=== PATIENT | female | born 1960 | race Caucasian/White ===

== ENCOUNTER 2022-05-31 07:03 | Observation (INO) ==
[2022-05-31] MEDS ORDERED: TORADOL IVP ONE (09:55)
[2022-05-31 11:35] LABS: SARS COV-2 RNA RAPID NAAT NEGATIVE (NEGATIVE)
[2022-05-31] MEDS ORDERED: NITROSTAT SL PRN (11:38)
[2022-05-31] MEDS ORDERED: ATIVAN PO PRN (11:38)
[2022-05-31 12:36] VITALS: BMI 29.5
[2022-05-31] MEDS: SODIUM CHLORIDE 1,000 ML IV SCH (13:02)
[2022-05-31] MEDS ORDERED: HUMULIN R SUBCUT PRN (13:05)
[2022-05-31] MEDS ORDERED: TYLENOL PO PRN (13:05)
--- NOTE | 2022-05-31 14:06 | DI ---
EXAM: RADIOGRAPHS, RIGHT HIP AND PELVIS HISTORY: Right hip injury, fall. COMPARISON: None. TECHNIQUE: Three views. FINDINGS: Bone mineralization normal. No fracture or dislocation. Mild osteoarthritis of the hips. No erosions. Lower lumbar degenerative changes noted. Atherosclerotic calcifications present. IMPRESSION: No fracture or dislocation.
--- NOTE | 2022-05-31 14:06 | CT ---
EXAM: CT LUMBAR SPINE WITHOUT CONTRAST. HISTORY: Back pain following a fall. COMPARISON: None. TECHNIQUE: Multiple axial images of the lumbar spine were obtained without intravenous contrast. Im ages were reformatted in the sagittal and coronal planes. FINDINGS: The normal curvature and alignment are maintained. Vertebral body eights are normal. No fracture or subluxation is seen. Moderate to severe loss of disc height L2-3, severe loss of disc he ight L3-4 along the left and L4-5 along the right with moderate loss of disc height L5-S1. Disc osteophyte formation, facet arthropathy thickening of ligamentum flavum with moderate central ca nal stenosis L2-3 and L3-4 and mild central canal stenosis L4-5. There is mild right and moderate le ft neural foraminal narrowing at L2-3, mild to moderate right and severe left neural foraminal narrow ing at L3-4, moderate right and mild left neural foraminal narrowing at L4-5 and moderate neural fora jess narrowing bilaterally L5-S1. Adjacent soft tissues are unremarkable. Atherosclerotic calcifications present. No aneurysm. Colonic diverticulosis. Urinary bladder diste nded although incompletely imaged. IMPRESSION: No acute abnormality of the lumbar spine. All CT scans are performed using dose optimization techniques as appropriate to the performed exam an d include at least one of the following: Automated exposure control, adjustment of the mA and/or kV according t o size, and the use of iterative reconstruction technique.
--- NOTE | 2022-05-31 14:06 | CT ---
EXAMINATION: CT THORACIC SPINE WITHOUT CONTRAST HISTORY: Fall, pain TECHNIQUE: CT of the thoracic spine was performed according to standard protocol without intravenous contrast. Sagittal and coronal reformatted images were obtained using the data from the axial images . Contrast Dose: None. CT Dose Reduction Techniques Performed: Yes. COMPARISON: None. FINDINGS: Segmentation: 12 rib-bearing thoracic vertebral bodies. Alignment: Anatomic. Bones: No fracture. No lytic or blastic lesion. Disc Spaces: Normal heights. Soft Tissues: There are calcified mediastinal lymph nodes. Atherosclerotic aorta. Limited chest and abdomen: The visualized portions of the lungs are clear. The thoracic aorta is not dilated. The visualized portions of the adrenals and kidneys are normal. Degenerative changes: Minimal scattered degenerative disc disease, mostly in the lower thoracic spine . IMPRESSION: 1. No fracture or subluxation. Minimal degenerative disc disease All CT scans are performed using dose optimization techniques as appropriate to the performed exam an d include at least one of the following: Automated exposure control, adjustment of the mA and/or kV according t o size, and the use of iterative reconstruction technique.
--- NOTE | 2022-05-31 14:06 | CT ---
EXAM: CT CERVICAL SPINE WITHOUT CONTRAST. HISTORY: Neck injury, fall. COMPARISON: None. TECHNIQUE: Multiple axial images of the cervical spine were obtained without intravenous contrast. Images were reformatted in the sagittal and coronal planes. FINDINGS: There is normal curvature and alignment. Vertebral body heights are maintained. Mild los s of disc height at multiple levels. No fracture or subluxation is seen. Disc osteophyte formation causes mild central canal stenosis C4-5 and along with uncovertebral hypertrophy facet arthropathy ca uses severe right and moderate left neural foraminal narrowing at C4-5, moderate right neural foramin al narrowing C5-6, and mild neural foraminal narrowing at C6-7. The prevertebral soft tissues are unremarkable. Atherosclerotic calcifications present. Probable scarring right upper lobe. Heterogeneous thyroid g land with bilateral nodules. Follow-up ultrasound recommended. IMPRESSION: No acute abnormality of the cervical spine. All CT scans are performed using dose optimization techniques as appropriate to the performed exam an d include at least one of the following: Automated exposure control, adjustment of the mA and/or kV according t o size, and the use of iterative reconstruction technique.
[2022-05-31] MEDS: LOVENOX SUBCUT SCH (14:19)
[2022-05-31] MEDS: ATARAX PO SCH (15:39)
[2022-05-31] MEDS: COZAAR PO SCH (15:39)
[2022-05-31] MEDS: PLAVIX PO SCH (15:39)
[2022-05-31] MEDS: LIPITOR PO SCH (15:39)
[2022-05-31] MEDS: WELLBUTRIN XL PO SCH (15:39)
[2022-05-31] MEDS: ZESTRIL PO SCH (15:39)
[2022-05-31] MEDS: MORPHINE 2 MG/ML SYRINGE IVP PRN (18:22)
[2022-05-31] MEDS: LOPRESSOR PO SCH (20:42)
[2022-05-31] MEDS ORDERED: BUPROPION HCL 150 MG PO SCH (21:00)
[2022-06-01] MEDS: SODIUM CHLORIDE 1,000 ML IV SCH (00:09)
[2022-06-01] MEDS: MORPHINE 2 MG/ML SYRINGE IVP PRN (01:33)
[2022-06-01 03:36] LABS: BILIRUBIN,URINE Negative (NEGATIVE); CLARITY,URINE Clear (CLEAR); COLOR,URINE Yellow (YELLOW); GLUCOSE, URINE (UA) Trace (NEGATIVE); KETONES,URINE Negative (NEGATIVE); LEUKOCYTE ESTERASE ,URINE 2+ (NEGATIVE); NITRITE,URINE Negative (NEGATIVE); PROTEIN,URINE Negative (NEGATIVE); URINE, BLOOD Negative (NEGATIVE); UROBILINOGEN,URINE 0.2 (0.2)
[2022-06-01 03:37] LABS: URINE WBC, MICROSCOPIC 20-30 (0-2)
[2022-06-01 05:13] VITALS: BP 109/54; TEMP 97.1
[2022-06-01 05:18] LABS: BASOPHILS # (AUTO) 0.1 K/uL (0-0.2); BASOPHILS % (AUTO) 0.8 % (0.0-3.0); EOSINOPHILS # (AUTO) 0.2 K/ul (0.0-0.7); EOSINOPHILS % (AUTO) 2.1 % (0.0-7.0); HEMATOCRIT 40.2 % (37.0-47.0); HEMOGLOBIN 12.5 g/dl (12.0-16.0); IMMATURE GRANULOCYTE % (AUTO) 0.2 % (0.0-5.0); LYMPHOCYTES # (AUTO) 2.1 K/uL (0.60-3.4); LYMPHOCYTES % (AUTO) 24.6 (10.0-50.0); MEAN CORPUSCULAR HEMOGLOBIN 26.5 pg (27.0-31.0); MEAN CORPUSCULAR HGB CONC 31.1 (31.8-35.4); MEAN CORPUSCULAR VOLUME 85.4 fl (81.0-99.0); MONOCYTES # (AUTO) 0.7 K/uL (0.4-2.0); MONOCYTES % (AUTO) 8.3 (0-10); NEUTROPHILS # (AUTO) 5.6 K/ul (2.0-6.9); PLATELET COUNT 214 10^3/uL (140-440); RDW COEFFICIENT OF VARIATION 16.3 % (11.6-14.8); RED BLOOD COUNT 4.71 10^6/ul (4.20-5.40)
[2022-06-01 05:33] LABS: ALANINE AMINOTRANSFERASE 18.8 U/L (0-35); ALBUMIN 3.61 g/dL (3.5-5.0); ASPARTATE AMINO TRANSFERASE 23.3 U/L (14-36); BILIRUBIN,TOTAL 0.52 mg/dL (0.2-1.3); BLOOD UREA NITROGEN 8.3 mg/dL (7-17); CALCIUM 8.4 mg/dL (8.4-10.2); CARBON DIOXIDE 25.5 mmol/L (22-30.0); CHLORIDE 109.4 mmol/L (98-107); CREATININE 0.62 mg/dL (0.60-1.30); GLUCOSE 150.1 mg/dL (74-106); POTASSIUM 3.4 mmol/L (3.5-5.1); SODIUM 140.2 mmol/L (134.5-145); TOTAL PROTEIN 6.72 g/dL (6.3-8.2)
[2022-06-01] MEDS ORDERED: NORCO 7.5-325 PO ONE (08:06)
--- NOTE | 2022-06-01 08:44 | PCM.PROG ---
Date Seen by Provider: 06/01/22 Time Seen by Provider: 08:25 Subjective: Hip pain less today. Objective: Vitals: T=97.1 F, P=79, R=16, BM=033/54, SPO2=98 Appears to be comfortable. HEENT: [] Neck: [] Lungs: [] CVS: [] Abdomen: [] Extremities: [] Right hip nontender. Patient able to bear weight and ambulate. Neurological: [] Skin: [] Lab/Tests/Diagnostic Imaging: [] (1) Acute hip pain: Status: Acute Code(s): M25.559 - Pain in unspecified hip SNOMED Code(s): 01210056 Plan: Radiographic studies negative. Patient improved a bit. Discharge.
--- NOTE | 2022-06-01 08:48 | PCM.DC ---
Final Diagnosis: right hip pain Physical Exam Appearance: Well-appearing, No pain distress and Well-nourished Ill-appearing: None Pain Distress: None Eyes: Not Examined ENT: Nose normal and Oropharynx normal Neck: Supple Respiratory: Airway patent, Breath sounds clear and Breath sounds equal Cardiovascular: RRR, No rub and No murmur GI/: Soft, Nontender, No masses and Bowel sounds normal Musculoskeletal: Normal strength, No edema and No calf tenderness Skin: Warm and Dry Neurological: Alert and Oriented Psychiatric: Affect appropriate and Mood appropriate (1) Acute hip pain: Status: Acute Code(s): M25.559 - Pain in unspecified hip SNOMED Code(s): 45485496 Reason for Hospitalization: right hip pain Prognosis/Condition at Discharge: condition at discharge was stable Medications at Discharge: patient discharged with toradol and prior admission medications Education Provided to Patient and Family: hip pain Follow-ups: Follow up with your primary care provider in 1-2 days Discharge Disposition: Home Hospital Course: Patient admitted for right hip pain control related to fall. All radiographs were negative. Pain improved and patient discharged to home. Plan: Follow up with your primary care provider in 1-2 days.
[2022-06-01] MEDS: LIPITOR PO SCH (08:53)
[2022-06-01] MEDS: ATARAX PO SCH (08:53)
[2022-06-01] MEDS: COZAAR PO SCH (08:53)
[2022-06-01] MEDS: PLAVIX PO SCH (08:53)
[2022-06-01] MEDS: LOPRESSOR PO SCH (08:53)
[2022-06-01] MEDS: WELLBUTRIN XL PO SCH (08:54)
[2022-06-01] MEDS: ZESTRIL PO SCH (08:54)
[2022-06-01] MEDS: LOVENOX SUBCUT SCH (08:56)
== END 2022-06-01 10:48 | disposition home or self-care (01) ==
LOC: MEDSURG A 07:03 → ED 07:03 → MEDSURG A 12:17
PROVIDERS: ADMIT Emergency Medicine Emergency Medical Services; ATTEND Surgery
DX: Y99.9 Unspecified external cause status; Z79.84 Long term (current) use of oral hypoglycemic drugs; Y93.9 Activity, unspecified; Z79.899 Other long term (current) drug therapy; E11.9 Type 2 diabetes mellitus without complications; Z79.4 Long term (current) use of insulin; S70.01XA Contusion of right hip, initial encounter; W01.0XXA Fall on same level from slipping, tripping and stumbling without subsequent striking against object, initial encounter; R26.2 Difficulty in walking, not elsewhere classified; I10 Essential (primary) hypertension; Y92.9 Unspecified place or not applicable; M25.551 Pain in right hip; S39.012A Strain of muscle, fascia and tendon of lower back, initial encounter; Z51.81 Encounter for therapeutic drug level monitoring; Z20.822 Contact with and (suspected) exposure to COVID-19

== ENCOUNTER 2024-11-26 07:14 | Observation (INO) ==
--- NOTE | 2024-11-26 07:20 | ED.PDOC ---
General [facility] ED Provider: Dr. MAI TERRY MD Chief Complaint: Nausea/Vomiting Stated Complaint: Patient is a 64-year-old female that reported to the emergency department for nausea and chills and fatigue for the past few days. Patient stated that she has not been around any other sick contacts. Patient stated that she was seen in August and diagnosed with pneumonia. She stated that she was given an inhaler that has made her jittery. She stated that she saw her primary care doctor and they started her on Symbicort for COPD. She stated that she started feeling better however for the past few days she has continued to get worse and had the shakes/chills, fatigue, and nausea. Patient stated that she has not had any fever, sore throat, shortness of breath, dizziness, syncope, or any other acute symptoms. Patient stated that she has not been outside the country recently. Patient stated that she does not drink from any impure water sources. Patient did state that she has a reproducible pain to touch in her epigastric/lower center chest. Patient stated that the pain does not radiate. Patient denied any diaphoresis. Patient did state that she has recently had a cardiac surgery she does not know whether it was stents were placed or if there was bypass grafts however she stated that she had the surgery at [facility] in [facility] and she thinks that her surgeon was a Dr. Konrad Martinez. In the emergency department patient's blood pressure is elevated at 212/108. Patient's heart rate is 88 bpm. Patient has O2 sat of 94% on room air. Patient's GCS is 15. Time Seen by Provider: 11/26/24 07:15 Mode of Arrival: Walk-In Information Source: Patient Exam Limitations: No limitations Primary Care Provider: RAMU DALY Nursing and Triage Documentation Reviewed and Agree: Yes Opioid Naive vs. Tolerant What is Opioid Naive?: *Opioid Naive implies the patient is not already taking opioids or not chronically receiving opioids on a daily basis. *PRN dosing is not "usually" associated with tolerance. *Patients are at higher risk of over-sedation and aspiration. What is Opioid Tolerant?: *Opioid Tolerance implies less than the expected response to an opioid. *Acquired tolerance is defined by the patient taking 60mg of oral morphine daily (or equianalgesic dose of another opioid) for 1 week or more. *Often associated with chronic pain. *May take more than usual dose to achieve desired pain control. Review of Systems Review Of Systems Constitutional: Reports Chills and Weakness Cardiac: Reports Chest pain GI: Reports Vomiting PFSH PFSH Medical History (Updated 11/26/24 @ 08:34 by AMI TERRY MD) Anxiety F41.9 - Anxiety disorder, unspecified (ICD-10) Obesity E66.9 - Obesity, unspecified (ICD-10) CAD (coronary artery disease) I25.10 - Atherosclerotic heart disease of [place] coronary artery without angina pectoris (ICD-10) Hypertension I10 - Essential (primary) hypertension (ICD-10) Diabetes mellitus E11.9 - Type 2 diabetes mellitus without complications (ICD-10) Hyperlipidemia E78.5 - Hyperlipidemia, unspecified (ICD-10) Other specified events, undetermined intent, initial encounter Right hand injury 2013 Y33.XXXA - Other specified events, undetermined intent, initial encounter (ICD-10) Family History (Updated 05/31/22 @ 12:39 by DIMITRIS COLLIER RN) Mother Cancer FATHER Cancer Social History (Updated 05/31/22 @ 12:40 by DIMITRIS COLLIER RN) Smoking and tobacco status: Current every day smoker Tobacco type: cigarettes Smoking packs per day: 1 Smoking cigarettes per day: 20.0 Years smoked: 45 Smoking pack-years: 45.00 Tobacco: How many years used: 40 Surgical History Hx of CABG Z95.1 - Presence of aortocoronary bypass graft (ICD-10) History of musculoskeletal system surgery Right hand Z98.890 - Other specified postprocedural states (ICD-10) Status post hysterectomy Z90.710 - Acquired absence of both cervix and uterus (ICD-10) Female Reproductive History Menstrual Hx Hysterectomy: Yes Hx Tubal Ligation: No Physical Exam Physical Exam Appearance: Reports Ill-appearing, No pain distress and Well-nourished Ill-appearing: Mild Pain Distress: None Eyes: Reports KYRA, EOMI and Conjunctiva clear ENT: Reports Nose normal and Oropharynx normal Neck: Supple Respiratory: Reports Airway patent, Breath sounds clear, Breath sounds equal and Respirations nonlabored Cardiovascular: Reports RRR, Pulses normal, No rub and No murmur GI/: Reports Soft, Nontender and Bowel sounds normal Musculoskeletal: Reports Normal strength, ROM intact, No edema and No calf tenderness Skin: Reports Warm, Dry and Normal color Neurological: Reports Sensation intact, Motor intact, Alert and Oriented Psychiatric: Reports Affect appropriate and Mood appropriate Physician Progress Note Physician Progress Note: Patient is a 64-year-old female that reported to the emergency department for nausea and chills and fatigue for the past few days. Patient stated that she has not been around any other sick contacts. Patient stated that she was seen in August and diagnosed with pneumonia. She stated that she was given an inhaler that has made her jittery. She stated that she saw her primary care doctor and they started her on Symbicort for COPD. She stated that she started feeling better however for the past few days she has continued to get worse and had the shakes/chills, fatigue, and nausea. Patient stated that she has not had any fever, sore throat, shortness of breath, dizziness, syncope, or any other acute symptoms. Patient stated that she has not been outside the country recently. Patient stated that she does not drink from any impure water sources. Patient did state that she has a reproducible pain to touch in her epigastric/lower center chest. Patient stated that the pain does not radiate. Patient also stated that she has had palpitations the past few weeks. Patient denied any diaphoresis. Patient did state that she has recently had a cardiac surgery she does not know whether it was stents were placed or if there was bypass grafts however she stated that she had the surgery at [facility] in [facility] and she thinks that her surgeon was a Dr. Konrad Martinez. In the emergency department patient's blood pressure is elevated at 212/108. Patient's heart rate is 88 bpm. Patient has O2 sat of 94% on room air. Patient's GCS is 15. - Will give IV normal saline 1 L bolus for dehydration - Will give IV ondansetron 4 mg for nausea and vomiting - Will order baseline labs and a urinalysis. - Due to patient's hypertension with chest pain will order an EKG, chest xray, troponin, cpk, BNP. - EKG shows normal sinus rhythm with normal axis. Possible left atrial enlargement noted. No acute STEMI. Ventricular rate is 87 bpm. EKG interpreted by ER physician. - Chest x-ray shows a left lower lobe consolidation consistent with atelectasis though pneumonia cannot be excluded. This radiograph was interpreted by the ER physician and over read by radiology. - Due to patient's current symptoms and objective findings (i.e. normal white count and afebrile) in this exam pneumonia is not likely the cause of the patient's symptoms. - Troponins negative. - BNP is elevated at 1500. - Strep is negative. Course Course 11/26/24 07:44 11/26/24 07:44 Orders, Labs, Meds: Lab Review 11/26/24 07:44 WBC 9.24 RBC 5.38 Hgb 15.1 Hct 47.4 H MCV 88.1 MCH 28.1 MCHC 31.9 RDW Coeff of Anthony 14.0 Plt Count 305 Immature Gran % (Auto) 0.2 Neut % (Auto) 62.3 Lymph % (Auto) 28.0 [place] % (Auto) 6.0 Eos % (Auto) 2.4 Baso % (Auto) 1.1 Neut # (Auto) 5.8 Lymph # (Auto) 2.6 [place] # (Auto) 0.6 Eos # (Auto) 0.2 Baso # (Auto) 0.1 Immature Gran # (Auto) 0.0 Sodium 141.5 Potassium 3.83 Chloride 104.6 Carbon Dioxide 28.8 Anion Gap 11.93 BUN 7.9 Creatinine 0.62 Estimated GFR (MDRD) 97.00 BUN/Creatinine Ratio 12.74 Glucose 119.6 H Lactic Acid 1.08 Calcium 10.44 H Total Bilirubin 0.62 AST 40.8 H ALT 33.5 Alkaline Phosphatase 89.9 Total Creatine Kinase 34.6 Troponin I < 0.012 NT-Pro-B Natriuret Pep 1500 H Total Protein 8.52 H Albumin 4.55 Globulin 3.97 Albumin/Globulin Ratio 1.14 Lipase 58.4 Orders Category Date Time Status EKG-(ED & IP/OBS ONLY) Stat CARDIO 11/26/24 07:29 Completed IV [ED IV/MEDIPORT/POWERPORT] .ONCE EMERGENCY 11/26/24 07:27 Active CBC W/ AUTO DIFF Stat LAB 11/26/24 07:44 Completed COMPREHENSIVE METABOLIC PANEL Stat LAB 11/26/24 07:44 Completed CREATINE KINASE Stat LAB 11/26/24 07:44 Completed LACTIC ACID Stat LAB 11/26/24 07:44 Completed LIPASE Stat LAB 11/26/24 07:44 Completed NT-PROBNP(ED) Stat LAB 11/26/24 07:44 Completed RAPID STREP SCREEN [MOLECULAR GROUP A STREP] Stat LAB 11/26/24 08:05 Completed TROPONIN I Stat LAB 11/26/24 07:44 Completed URINALYSIS C & S IF INDICATED Stat LAB 11/26/24 07:27 Uncollected 0.9 % Sodium Chloride [Saline Flush] Meds 11/26/24 07:27 Active 1 syr IVF PRN PRN Hydralazine HCl Meds 11/26/24 07:27 Discontinued 10 mg IVP ONCE STA Ondansetron HCl/Pf [Zofran Sdv] Meds 11/26/24 07:27 Discontinued 4 mg IVP ONCE STA Sodium Chloride 0.9% [Sodium Chloride] 1,000 ml Meds 11/26/24 07:27 Discontinued IV BOLUS CHEST, 1V AP ONLY Stat RADS 11/26/24 07:31 Completed Medications Generic Name Dose Route Start Last Admin Trade Name Freq PRN Reason Stop Dose Admin Sodium Chloride 1 syr 11/26/24 07:27 0.9% Sodium Chloride 10 Ml Disp.Syrin IVF PRN PRN To flush IV Discontinued Medications Generic Name Dose Route Start Last Admin Trade Name Freq PRN Reason Stop Dose Admin Hydralazine HCl 10 mg 11/26/24 07:27 11/26/24 07:58 Hydralazine Hcl 20 Mg/Ml Sdv IVP 11/26/24 07:28 10 mg ONCE STA Administration Sodium Chloride 1,000 mls @ 1,000 mls/hr 11/26/24 07:27 11/26/24 07:59 Sodium Chloride IV 11/26/24 08:26 1,000 mls/hr BOLUS ONE Administration Ondansetron HCl 4 mg 11/26/24 07:27 11/26/24 07:58 Ondansetron Hcl/Pf 4 Mg/2 Ml Sdv IVP 11/26/24 07:28 4 mg ONCE STA Administration Vital Signs: Temp Pulse Resp BP Pulse Ox 11/26/24 07:20 96.8 F L 96 18 212/108 H 93 L Discharge Plan Discharge Patient Disposition: PLACED OBSERVATION Discharge Problem: Essential hypertension, Elevated brain natriuretic peptide (BNP) level, Intractable nausea Chest pain Qualifiers: Chest pain type: unspecified Qualified Code(s): R07.9 - Chest pain, unspecified COPD (chronic obstructive pulmonary disease) Qualifiers: COPD type: unspecified COPD Qualified Code(s): J44.9 - Chronic obstructive pulmonary disease, unspecified Did you review [place] [employer] for ALL controlled substances?: Not Applicable ED Provider: AMI TERRY Condition: Stable
[2024-11-26 07:29] VITALS: BMI 25.9
[2024-11-26 07:49] LABS: IMMATURE GRANULOCYTE # (AUTO) 0.0 (0.0-1.0); IMMATURE GRANULOCYTE % (AUTO) 0.2 % (0.0-5.0); RDW COEFFICIENT OF VARIATION 14.0 % (11.6-14.8)
[2024-11-26] MEDS: ZOFRAN SDV IVP STA (07:58)
[2024-11-26] MEDS: SODIUM CHLORIDE 1,000 ML IV ONE (07:59)
[2024-11-26 08:02] LABS: CREATININE 0.62 mg/dL (0.60-1.30)
--- NOTE | 2024-11-26 08:21 | DI ---
EXAM: CHEST RADIOGRAPH TECHNIQUE: Single frontal chest radiograph. HISTORY: Hypertensive urgency COMPARISON: 09/10/2024. FINDINGS: There is some mild opacity in the lung base on the left which could be due to overlapping structures though minimal infiltrate is not excluded. Lungs are hyperinflated and hyperlucent. Likely overlapping vessels within the upper lung on the right unchanged. Midline sternotomy is stable with a few of the upper wire is fractured. Heart is borderline prominent. Mediastinum is normal. No free air is seen below the diaphragm. There is no pleural effusion. There is no pneumothorax. No significant acute bony abnormality is definitively identified. Degenerative changes of the spine. IMPRESSION: 1. Midline sternotomy is stable, as above. Heart is borderline prominent. 2. Opacity lower lung on the left could be due to atelectasis and overlapping structures and rotation though minimal infiltrate is not excluded. Short-term follow up is recommended. 3. Lungs are hyperinflated and hyperlucent without other acute finding. Details and other findings, as above.
[2024-11-26] MEDS ORDERED: HUMULIN R (10ML) SUBCUT PRN (09:19)
[2024-11-26 09:35] LABS: GLUCOSE, URINE (UA) Negative (NEGATIVE); LEUKOCYTE ESTERASE ,URINE Negative (NEGATIVE); URINE, BLOOD Trace-intact (NEGATIVE)
[2024-11-26] MEDS: HYDRALAZINE HCL IVP STA (09:35)
[2024-11-26 09:44] LABS: URINE RBC, MICROSCOPIC 0-2 (0-2)
[2024-11-26] MEDS: MAGNESIUM SULF 2 G/50 ML BAG 2 GM/50 ML PIGGYBACK IV ONE (11:01)
[2024-11-26] MEDS ORDERED: VENTOLIN HFA IH PRN (11:43)
[2024-11-26] MEDS: REGLAN IVP PRN (11:49)
--- NOTE | 2024-11-26 13:47 | PCM ---
Date of Service Date Seen by Provider: 11/26/24 Time Seen by Provider: 13:30 Admit Day/Time Admission Date: 11/26/24 Admission Time: 08:30 Reason for Admission Chief Complaint: INTRACTIBLE NAUSEA,ESSENTIAL HTN,ELEVATED BNP Hospital Provider Hospital Provider: LEOBARDO PIMENTEL, [facility] [place] Primary Care Physician: RAMU DALY History of Present Illness History of Present Illness: 64 yo female with pmh of CAD, DM2, HTN, and HLD presented to the ER with n/v/d. States that this has been ongoing "since she came to the ER the last time". Points to epigastric area and states this is where my pain is and it makes me so anxious and nauseated. Denies any blood in her vomit or stool. Denies any fever. States she becomes flushed, anxious, and nauseated and "I just don't feel good." Unable to recall diagnosis from previous ER visit. Upon review of records, 08/2024 patient had a positive occult stool and reported black stool. Stated she had a colonscopy 5 years ago that was normal. Today she reports "it's been a long time since my last one and it had all kinds of polyps." Denies abnormal stools today but that they are mush. Does take metformin and is also on protonix. Also reports taking ibuprofen frequently due to chronic back pain ER work-up negative for acute findings, but patient continued to be nauseated. Admitted to med/surg observation. Case Discussed With Case Discussed With: Patient's case was discussed with the ER Physicians, Dr. Alvarez. PSYCHIATRIC Medical History Anxiety F41.9 - Anxiety disorder, unspecified (ICD-10) Obesity E66.9 - Obesity, unspecified (ICD-10) CAD (coronary artery disease) I25.10 - Atherosclerotic heart disease of [place] coronary artery without angina pectoris (ICD-10) Hypertension I10 - Essential (primary) hypertension (ICD-10) Diabetes mellitus E11.9 - Type 2 diabetes mellitus without complications (ICD-10) Hyperlipidemia E78.5 - Hyperlipidemia, unspecified (ICD-10) Other specified events, undetermined intent, initial encounter Right hand injury 2013 Y33.XXXA - Other specified events, undetermined intent, initial encounter (ICD-10) Surgical History Hx of CABG Z95.1 - Presence of aortocoronary bypass graft (ICD-10) History of musculoskeletal system surgery Right hand Z98.890 - Other specified postprocedural states (ICD-10) Status post hysterectomy Z90.710 - Acquired absence of both cervix and uterus (ICD-10) Family History Mother Cancer FATHER Cancer Social History Smoking and tobacco status: Current every day smoker Tobacco type: cigarettes Smoking packs per day: 1 Smoking cigarettes per day: 20.0 Years smoked: 45 Smoking pack-years: 45.00 Tobacco: How many years used: 40 Allergies Allergies Allergy/AdvReac Type Severity Reaction Status Date / Time prasad Allergy Mild rash, head Verified 11/26/24 07:39 congestion Current Medications Home Medications Acetaminophen (Acetaminophen 325 Mg Tablet) 650 mg PO Q4H PRN PRN Reason: Mild Pain Albuterol Sulfate (Albuterol Sulfate 8 Gm Inhaler) 2 puff IH Q4H PRN PRN Reason: Wheezing Atorvastatin Calcium (Atorvastatin Calcium 20 Mg Tablet) 80 mg PO DAILY [facility]I Clopidogrel Bisulfate (Clopidogrel Bisulfate 75 Mg Tablet) 75 mg PO DAILY [facility]I Empagliflozin (Empagliflozin 10 Mg Tablet) 10 mg PO DAILY [facility]UMI Famotidine (Famotidine Inj 20 Mg/2 Ml Vial) 20 mg IVP Q12HR [facility]I Hydroxyzine HCl (Hydroxyzine Hcl 25 Mg Tablet) 25 mg PO TID PRN PRN Reason: Anxiety Insulin Human Regular (Insulin Regular, Human 100 Unit/Ml (10ml) Vial) 0 unit SUBCUT PRN PRN; Protocol PRN Reason: Hyperglycemia Losartan Potassium (Losartan Potassium 100 Mg Tablet) 100 mg PO DAILY [facility]UMI Metoclopramide HCl (Metoclopramide Hcl 10 Mg/2 Ml) 5 mg IVP Q6H PRN PRN Reason: Nausea / Vomiting Last Admin: 11/26/24 11:49 Dose: 5 mg Metoprolol Tartrate (Metoprolol Tartrate 25 Mg Tablet) 25 mg PO BID [facility] Mirtazapine (Mirtazapine 15 Mg Tablet) 7.5 mg PO QPM [facility] Ondansetron HCl (Ondansetron Hcl/Pf 4 Mg/2 Ml Sdv) 4 mg IVP Q6H PRN PRN Reason: Nausea / Vomiting Last Admin: 11/26/24 13:54 Dose: 4 mg Pantoprazole Sodium (Pantoprazole Sodium 40 Mg Vial) 40 mg IVP DAILY [facility]UMI Sodium Chloride (0.9% Sodium Chloride 10 Ml Disp.Syrin) 1 syr IVF PRN PRN PRN Reason: To flush IV atorvastatin 80 mg tablet 80 mg PO DAILY 08/30/21 [History Confirmed 11/26/24] clopidogrel 75 mg tablet 75 mg PO DAILY 08/30/21 [History Confirmed 11/26/24] empagliflozin 10 mg tablet (Jardiance) 10 mg PO DAILY 08/30/21 [History Confirmed 11/26/24] metformin 500 mg tablet 1,000 mg PO BID 08/30/21 [History Confirmed 11/26/24] metoprolol tartrate 25 mg tablet 25 mg PO BID 08/30/21 [History Confirmed 11/26/24] losartan 100 mg tablet 100 mg PO DAILY 05/31/22 [History Confirmed 11/26/24] albuterol sulfate 90 mcg/actuation aerosol inhaler (Ventolin HFA) 2 puff inhalation Q4H PRN shortness of breath or wheezing #6.7 grams 09/10/24 [Rx Confirmed 11/26/24] doxepin 10 mg capsule 10 mg PO BEDTIME 09/10/24 [History Confirmed 11/26/24] budesonide-formoterol HFA 80 mcg-4.5 mcg/actuation aerosol inhaler (Symbicort) 2 puff inhalation BID 11/26/24 [History Confirmed 11/26/24] mirtazapine 7.5 mg tablet 7.5 mg PO QPM 11/26/24 [History Confirmed 11/26/24] pantoprazole 40 mg tablet,delayed release 40 mg PO DAILY 11/26/24 [History Confirmed 11/26/24] Opioid Naive vs. Tolerant Does Patient Take Opioids?: No Is Patient Opioid Naive?: Yes What is Opioid Naive?: *Opioid Naive implies the patient is not already taking opioids or not chronically receiving opioids on a daily basis. *PRN dosing is not "usually" associated with tolerance. *Patients are at higher risk of over-sedation and aspiration. Is Patient Opioid Tolerant?: No What is Opioid Tolerant?: *Opioid Tolerance implies less than the expected response to an opioid. *Acquired tolerance is defined by the patient taking 60mg of oral morphine daily (or equianalgesic dose of another opioid) for 1 week or more. *Often associated with chronic pain. *May take more than usual dose to achieve desired pain control. Review of Systems Constitutional: Reports No symptoms; Denies Fever, Chills or Weakness Head: Reports Normocephalic Eyes: Reports No symptoms Ears: Reports No symptoms Nose: Reports No symptoms Mouth: Reports No symptoms Throat: Reports No symptoms Cardiovascular: Reports No symptoms Respiratory: Reports No symptoms Gastrointestinal: Reports Nausea, Vomiting, Diarrhea, Heartburn and Reflux; Denies Hematemesis, Hematochezia, Constipation, Black Tarry Stools or Melena Genitourinary: Reports No Symptoms Musculoskeletal: Reports No symptoms Endocrine: Reports No symptoms Hematology: Reports No symptoms Immunology: Reports No symptoms Neurological: Reports No symptoms Psychiatric: Reports No symptoms Physical examination Most Recent Vital Signs: Most Recent Vital Signs Temperature 97.8 F 11/26/24 11:10 Temperature Source Temporal Artery Scan 11/26/24 11:10 Temperature Source Temporal Artery Scan 11/26/24 07:20 Pulse Rate 87 11/26/24 11:10 Respiratory Rate 21 H 11/26/24 11:10 Blood Pressure 170/80 H 11/26/24 11:10 Blood Pressure Mean 110 11/26/24 11:10 Blood Pressure Left Arm 170/80 11/26/24 11:08 Blood Pressure Location Left Arm 11/26/24 11:10 Blood Pressure Position Sitting 11/26/24 11:10 O2 Sat by Pulse Oximetry 97 11/26/24 11:10 Oxygen Delivery Method Nasal Cannula 11/26/24 13:00 Oxygen Flow Rate 2 11/26/24 09:37 Height 5 ft 3 in 11/26/24 11:08 Weight 66.5 kg 11/26/24 11:08 Telemetry Type Remote Telemetry 11/26/24 13:33 Telemetry Monitoring Continues 11/26/24 13:33 Telemetry Heart Rate 84 11/26/24 13:33 EKG DE Interval 0.19 11/26/24 13:33 EKG QRS Interval 0.06 11/26/24 13:33 Telemetry Strip Reading SINUS RHYTHM 11/26/24 13:33 Appearance: Positive No Apparent Distress and Alert and Oriented x3 Skin: Positive Warm and Good Color HEENT: Positive Normocephalic and PERRLA Neck: Positive Supple and Midline Trachea Chest/Lungs: Positive Symmetrical With Equal Breath Sounds, Clear to Auscultation Bilaterally and Good Air Movement all 4 Lung Tam; Negative Rales, Rhonci or Wheezes Heart: Positive RRR and Pulses Normal GI/: Positive Soft, Bowel Sounds Normal and Tender (epigastric) Musculoskeletal: Positive Not Examined Extremities: Positive Intact Peripheral Pulses, Stable Joints Without Laxity and Good ROM in All Joints Neurological: Positive Sensation Intact, Motor intact, Reflexes Intact, Alert, Oriented and Muscle Strength 5/5 in Upper and Lower Extremities Bilaterally Labs This Visit Labs This Visit: Labs This Visit 11/26/24 11/26/24 11/26/24 07:44 09:14 09:27 WBC 9.24 RBC 5.38 Hgb 15.1 Hct 47.4 H MCV 88.1 MCH 28.1 MCHC 31.9 RDW Coeff of Anthony 14.0 Plt Count 305 Immature Gran % (Auto) 0.2 Neut % (Auto) 62.3 Lymph % (Auto) 28.0 [place] % (Auto) 6.0 Eos % (Auto) 2.4 Baso % (Auto) 1.1 Neut # (Auto) 5.8 Lymph # (Auto) 2.6 [place] # (Auto) 0.6 Eos # (Auto) 0.2 Baso # (Auto) 0.1 Immature Gran # (Auto) 0.0 Sodium 141.5 Potassium 3.83 Chloride 104.6 Carbon Dioxide 28.8 Anion Gap 11.93 BUN 7.9 Creatinine 0.62 Estimated GFR (MDRD) 97.00 BUN/Creatinine Ratio 12.74 Glucose 119.6 H Lactic Acid 1.08 Calcium 10.44 H Magnesium 1.34 L Total Bilirubin 0.62 AST 40.8 H ALT 33.5 Alkaline Phosphatase 89.9 Total Creatine Kinase 34.6 Troponin I < 0.012 0.013 NT-Pro-B Natriuret Pep 1500 H Total Protein 8.52 H Albumin 4.55 Globulin 3.97 Albumin/Globulin Ratio 1.14 Lipase 58.4 TSH 1.080 Urine Color Yellow Urine Clarity Clear Urine pH 6.5 Ur Specific [place] 1.015 Urine Protein 2+ H Urine Glucose (UA) Negative Urine Ketones Negative Urine Blood Trace-intact H Urine Nitrite Negative Urine Bilirubin Negative Urine Urobilinogen 0.2 Ur Leukocyte Esterase Negative Urine Microscopic RBC 0-2 Ur Squamous Epith Cells 2-5 Microbiology This Visit 11/26/24 08:05 Throat Group A Strep Molecular Assay - Final Imaging Imaging: EXAM: CHEST RADIOGRAPH TECHNIQUE: Single frontal chest radiograph. HISTORY: Hypertensive urgency COMPARISON: 09/10/2024. FINDINGS: There is some mild opacity in the lung base on the left which could be due to overlapping structures though minimal infiltrate is not excluded. Lungs are hyperinflated and hyperlucent. Likely overlapping vessels within the upper lung on the right unchanged. Midline sternotomy is stable with a few of the upper wire is fractured. Heart is borderline prominent. Mediastinum is normal. No free air is seen below the diaphragm. There is no pleural effusion. There is no pneumothorax. No significant acute bony abnormality is definitively identified. Degenerative changes of the spine. IMPRESSION: 1. Midline sternotomy is stable, as above. Heart is borderline prominent. 2. Opacity lower lung on the left could be due to atelectasis and overlapping structures and rotation though minimal infiltrate is not excluded. Short-term follow up is recommended. 3. Lungs are hyperinflated and hyperlucent without other acute finding. Details and other findings, as above. Review Statement Review Statement: I have independently reviewed and interpreted the labs/EKGs/imaging that were ordered by the ER provider. I have reviewed all outside records that are available currently in our EMR including imaging/notes/labs from previous visits. Plan Plan: 1. Acute Hypomagnesemia - replacement ordered, will repeat level, telemetry 2. Gastritis - likely due to overuse of ibuprofen, protonix and pepcid IVP, zofran and reglan Q6H prn, H pylori ordered 3. Anxiety - hydroxyzine 25mg tid prn 4. HTN - chronic, continue home medications 5. HLD - chronic, continue home medications DVT Prophylaxis: Ambulatory Time Spent: Greater than 80 minutes spent with patient, 50% of the time spent with this patient was devoted to counseling and coordination of care. Advanced Care Plannin minutes spent discussing advance care planning. Smoking Cessation: 3-10 minutes spent discussing smoking cessation. Disposition: Admit to: Med/Surg Observation Full Code Discussed Plan of Care with Dr. Bear Thornton. Medications Medication Orders: Medications Ordered Category Date Time Status 0.9 % Sodium Chloride [Saline Flush] Meds 11/26/24 07:27 Active 1 syr IVF PRN PRN Acetaminophen [Tylenol] Meds 11/26/24 09:18 Active 650 mg PO Q4H PRN Albuterol Sulfate [Ventolin Hfa] Meds 11/26/24 11:43 Active 2 puff IH Q4H PRN WHEEZING Wheezing Atorvastatin Calcium [Lipitor] Meds 11/26/24 12:00 Active 80 mg PO DAILY Clopidogrel Bisulfate [Plavix] Meds 11/26/24 12:00 Active 75 mg PO DAILY Empaglifozin [Jardiance] Meds 11/26/24 12:00 Active 10 mg PO DAILY Famotidine Inj [Pepcid] Meds 11/26/24 13:25 Active 20 mg IVP Q12HR Hydroxyzine HCl [Atarax] Meds 11/26/24 13:22 Active 25 mg PO TID PRN Insulin Regular, Human [Humulin R (10Ml)] Meds 11/26/24 09:19 Active See Protocol SUBCUT PRN PRN Losartan Potassium [Cozaar] Meds 11/26/24 11:45 Active 100 mg PO DAILY Metoclopramide HCl [Reglan] Meds 11/26/24 09:18 Active 5 mg IVP Q6H PRN Metoprolol Tartrate [Lopressor] Meds 11/26/24 21:00 Active 25 mg PO BID Mirtazapine [Remeron] Meds 11/26/24 17:00 Active 7.5 mg PO QPM Ondansetron HCl/Pf [Zofran Sdv] Meds 11/26/24 09:18 Active 4 mg IVP Q6H PRN Pantoprazole Sodium [Protonix] Meds 11/26/24 13:25 Active 40 mg IVP DAILY
[2024-11-26] MEDS: ZOFRAN SDV IVP PRN (13:54)
[2024-11-26 13:58] LABS: H. PYLORI ANTIBODY NEGATIVE (NEGATIVE)
[2024-11-26] MEDS: PEPCID IVP SCH (14:05)
[2024-11-26] MEDS: PROTONIX IVP SCH (14:10)
[2024-11-26] MEDS: LIPITOR PO SCH (16:06)
[2024-11-26] MEDS: ATARAX PO PRN (16:06)
[2024-11-26] MEDS: JARDIANCE PO SCH (16:07)
[2024-11-26] MEDS: PLAVIX PO SCH (16:08)
[2024-11-26] MEDS: COZAAR PO SCH (16:09)
[2024-11-26] MEDS: REMERON PO SCH (16:49)
[2024-11-26] MEDS: LOPRESSOR PO SCH (21:20)
[2024-11-26 22:05] VITALS: RESP 20
[2024-11-26 22:17] LABS: OCCULT BLOOD SAMPLE 1 POSITIVE (NEGATIVE)
[2024-11-27 05:34] LABS: IMMATURE GRANULOCYTE # (AUTO) 0.0 (0.0-1.0); IMMATURE GRANULOCYTE % (AUTO) 0.2 % (0.0-5.0); RDW COEFFICIENT OF VARIATION 14.1 % (11.6-14.8)
[2024-11-27 05:52] LABS: CREATININE 0.7 mg/dL (0.60-1.30)
[2024-11-27] MEDS ORDERED: PROTONIX PO SCH (06:00)
[2024-11-27 06:58] VITALS: BP 147/50; PULSE 55; TEMP 97.7
[2024-11-27] MEDS: TYLENOL PO PRN (08:42)
--- NOTE | 2024-11-27 09:30 | DCSUM ---
Admission Date Admission Date: 11/26/24 Discharge Date Discharge Date: 11/27/24 Admission Diagnosis Admission Diagnosis: 1. Acute Hypomagnesemia 2. Gastritis 3. Anxiety Discharge Diagnosis Discharge Diagnosis: 1. Acute Hypomagnesemia - Resolved 2. Gastritis - Improved 3. Anxiety - Improved, hydroxyzine 25mg tid prn 4. HTN - chronic, stable 5. HLD - chronic, stable 6. Melena - referred to GI Hospital Provider Hospital Provider: LEOBARDO PIMENTEL, [facility] [place] Phys[place] Primary Care Physician: RAMU DALY Summary of History and Physical Summary of History and Physical: 64 yo female with pmh of CAD, DM2, HTN, and HLD presented to the ER with n/v/d. States that this has been ongoing "since she came to the ER the last time". Points to epigastric area and states this is where my pain is and it makes me so anxious and nauseated. Denies any blood in her vomit or stool. Denies any fever. States she becomes flushed, anxious, and nauseated and "I just don't feel good." Unable to recall diagnosis from previous ER visit. Upon review of records, 08/2024 patient had a positive occult stool and reported black stool. Stated she had a colonscopy 5 years ago that was normal. Today she reports "it's been a long time since my last one and it had all kinds of polyps." Denies abnormal stools today but that they are mush. Does take metformin and is also on protonix. Also reports taking ibuprofen frequently due to chronic back pain ER work-up negative for acute findings, but patient continued to be nauseated. Admitted to med/surg observation. Hospital Course Subjective: During stay, magnesium was replaced and level returned to normal limits. Patient did not have any further episodes of palpitations or chest pain. Troponins trended and negative. Treated gastritis with protonix, pepcid, zofran, and reglan. H. pylori negative. Patient had reported dark stools to nursing staff. Occult stool collected and positive. Patient unsure of last colonoscopy. Discussed need for GI referral. Request sent to [facility]. Tolerating oral intake without further episodes of nausea. D/c with rx for protonix 40 mg bid, pepcid, and zofran. Patient also had complaints of anxiety during stay and started on hydroxyzine 25 mg TID and tolerated well. Labs within normal limits. Appearance: Pleasant, No Apparent Distress and Alert HEENT: MMM, Supple and No JVD CVS: No Murmur Abdomen: Soft, Non-Tender and No Distention Respiratory: No Dyspnea Extremities: No Edema Vital Signs: Most Recent Vital Signs Temperature 97.7 F 11/27/24 06:00 Temperature Source Temporal Artery Scan 11/27/24 06:00 Temperature Source Temporal Artery Scan 11/26/24 07:20 Pulse Rate 55 L 11/27/24 06:00 Respiratory Rate 20 11/27/24 06:00 Blood Pressure 147/50 H 11/27/24 06:00 Blood Pressure Mean 82 11/27/24 06:00 Blood Pressure Left Arm 170/80 11/26/24 11:08 Blood Pressure Location Left Arm 11/27/24 06:00 Blood Pressure Position Supine 11/27/24 06:00 O2 Sat by Pulse Oximetry 98 11/27/24 06:00 Oxygen Delivery Method Nasal Cannula 11/27/24 09:00 Oxygen Flow Rate 2 11/27/24 06:00 Height 5 ft 3 in 11/26/24 11:08 Weight 66.5 kg 11/26/24 11:08 Telemetry Type Remote Telemetry 11/27/24 07:00 Telemetry Monitoring Continues 11/27/24 07:00 Telemetry Heart Rate 72 11/27/24 07:00 Telemetry SPO2 95 11/27/24 07:00 EKG CO Interval 0.19 11/27/24 07:00 EKG QRS Interval 0.08 11/27/24 07:00 Telemetry Strip Reading NSR with PVC's 11/27/24 07:00 Imaging: EXAM: CHEST RADIOGRAPH TECHNIQUE: Single frontal chest radiograph. HISTORY: Hypertensive urgency COMPARISON: 09/10/2024. FINDINGS: There is some mild opacity in the lung base on the left which could be due to overlapping structures though minimal infiltrate is not excluded. Lungs are hyperinflated and hyperlucent. Likely overlapping vessels within the upper lung on the right unchanged. Midline sternotomy is stable with a few of the upper wire is fractured. Heart is borderline prominent. Mediastinum is normal. No free air is seen below the diaphragm. There is no pleural effusion. There is no pneumothorax. No significant acute bony abnormality is definitively identified. Degenerative changes of the spine. IMPRESSION: 1. Midline sternotomy is stable, as above. Heart is borderline prominent. 2. Opacity lower lung on the left could be due to atelectasis and overlapping structures and rotation though minimal infiltrate is not excluded. Short-term follow up is recommended. 3. Lungs are hyperinflated and hyperlucent without other acute finding. Details and other findings, as above. Lab Results Last 24 Hours: 11/27/24 11/26/24 11/26/24 05:11 21:45 20:07 WBC 9.05 RBC 4.67 Hgb 13.1 Hct 41.4 D MCV 88.7 MCH 28.1 MCHC 31.6 L RDW Coeff of [place] 14.1 Plt Count 258 Immature Gran % (Auto) 0.2 Neut % (Auto) 54.8 Lymph % (Auto) 32.7 [place] % (Auto) 8.8 Eos % (Auto) 2.0 Baso % (Auto) 1.5 Neut # (Auto) 5.0 Lymph # (Auto) 3.0 [place] # (Auto) 0.8 Eos # (Auto) 0.2 Baso # (Auto) 0.1 Immature Gran # (Auto) 0.0 Sodium 139.1 Potassium 3.60 Chloride 105.1 Carbon Dioxide 30.5 H Anion Gap 7.10 BUN 8.6 Creatinine 0.70 Estimated GFR (MDRD) 84.00 BUN/Creatinine Ratio 12.28 Glucose 102.1 Calcium 9.21 Magnesium 1.72 1.88 Total Bilirubin 0.63 AST 36.5 H ALT 28.0 Alkaline Phosphatase 63.6 D Troponin I Total Protein 6.89 Albumin 3.63 Globulin 3.26 Albumin/Globulin Ratio 1.11 TSH Urine Color Urine Clarity Urine pH Ur Specific [place] Urine Protein Urine Glucose (UA) Urine Ketones Urine Blood Urine Nitrite Urine Bilirubin Urine Urobilinogen Ur Leukocyte Esterase Urine Microscopic RBC Ur Squamous Epith Cells Stl Occult Blood (IFOB) Positive Stool Occult Blood #2 TNP Stool Occult Blood #3 TNP H. pylori IgG Antibody 11/26/24 11/26/24 11/26/24 09:27 09:14 07:44 WBC RBC Hgb Hct MCV MCH MCHC RDW Coeff of Anthony Plt Count Immature Gran % (Auto) Neut % (Auto) Lymph % (Auto) [place] % (Auto) Eos % (Auto) Baso % (Auto) Neut # (Auto) Lymph # (Auto) [place] # (Auto) Eos # (Auto) Baso # (Auto) Immature Gran # (Auto) Sodium Potassium Chloride Carbon Dioxide Anion Gap BUN Creatinine Estimated GFR (MDRD) BUN/Creatinine Ratio Glucose Calcium Magnesium 1.34 L Total Bilirubin AST ALT Alkaline Phosphatase Troponin I 0.013 Total Protein Albumin Globulin Albumin/Globulin Ratio TSH 1.080 Urine Color Yellow Urine Clarity Clear Urine pH 6.5 Ur Specific [place] 1.015 Urine Protein 2+ H Urine Glucose (UA) Negative Urine Ketones Negative Urine Blood Trace-intact H Urine Nitrite Negative Urine Bilirubin Negative Urine Urobilinogen 0.2 Ur Leukocyte Esterase Negative Urine Microscopic RBC 0-2 Ur Squamous Epith Cells 2-5 Stl Occult Blood (IFOB) Stool Occult Blood #2 Stool Occult Blood #3 H. pylori IgG Antibody Negative Discharge Instructions Discharge Planning: Discharge Planning > 40 minutes If patient is discharged with left ventricular systolic dysfunction: na Discharged with a beta alex? [] If no, why not? [] Discharged with an simone/arb? [] If no, why not? [] Discharge Medications: Medications at Discharge (Home Meds & RX) atorvastatin 80 mg tablet 80 mg PO DAILY 08/30/21 clopidogrel 75 mg tablet 75 mg PO DAILY 08/30/21 empagliflozin 10 mg tablet (Jardiance) 10 mg PO DAILY 08/30/21 metformin 500 mg tablet 1,000 mg PO BID 08/30/21 metoprolol tartrate 25 mg tablet 25 mg PO BID 08/30/21 losartan 100 mg tablet 100 mg PO DAILY 05/31/22 albuterol sulfate 90 mcg/actuation aerosol inhaler (Ventolin HFA) 2 puff inhalation Q4H PRN shortness of breath or wheezing #6.7 grams 09/10/24 mirtazapine 7.5 mg tablet 7.5 mg PO QPM 11/26/24 famotidine 20 mg tablet 20 mg PO DAILY #30 tabs 11/27/24 hydroxyzine HCl 25 mg tablet 25 mg PO TID PRN anxiety #30 tabs 11/27/24 ondansetron 4 mg disintegrating tablet 4 mg PO Q6H PRN nausea and vomiting #20 tabs 11/27/24 pantoprazole 40 mg tablet,delayed release 40 mg PO BID #60 tabs 11/27/24 Discharge Plan Discharge Discharge Orders: Discharge Patient (ONCE); Ordered 11/27/24 Ordered By: LAKIA HOLLOWAY Activity Restrictions/Additional Instructions: Discharge Home Today Please follow-up with your primary care physician within the next 5-7 days You can take [id number] Ibuprofen or Tylenol per label instructions as needed for discomfort. You should drink plenty of clear fluids to help maintain your hydration status. Increase your Pantoprazole to 2 times a day. Next dose at supper tonight. New Medications: 1. Famotidine 20mg. by mouth once a day; start tomorrow morning 2. Hydroxyzine 25mg. by mouth 3 times a day as needed for anxiety 3. Ondansetron 4mg. disintigrating tablet every 6 hours as needed for Nausea STOP Taking: Symbicort Inhaler Doxepin at bedtime Continue your other Home medications as indicated below. You may return to the emergency department for any worsening of symptoms or any other emergency services needed. You have been referred to [facility] in [place], [place]. Phone number is: [phone]. They will review your referral and reach out directly to schedule that appointment. Please call them at number provided if you do not hear anything within the next few days. Instructions: Famotidine (By mouth), Hydroxyzine (By mouth), Ondansetron (By mouth), Gastritis (GEN), Diet for Stomach Ulcers and Gastritis (GEN), Melena (GEN) Patient Disposition: HOME SELF-CARE Prescriptions: New hydroxyzine HCl 25 mg Tablet 25 mg PO TID PRN (Reason: anxiety) Qty: 30 0RF ondansetron 4 mg tablet,disintegrating 4 mg PO Q6H PRN (Reason: nausea and vomiting) Qty: 20 0RF famotidine 20 mg tablet 20 mg PO DAILY Qty: 30 0RF Continued losartan 100 mg tablet 100 mg PO DAILY Patient Comments: TAKE 1 TABLET BY MOUTH ONCE DAILY albuterol sulfate [Ventolin HFA] 90 mcg/actuation HFA aerosol inhaler 2 puff inhalation Q4H PRN (Reason: shortness of breath or wheezing) Qty: 6.7 1RF mirtazapine 7.5 mg tablet 7.5 mg PO QPM metformin 500 mg tablet 1,000 mg PO BID Patient Comments: TAKE 1 TABLET BY MOUTH TWICE DAILY atorvastatin 80 mg tablet 80 mg PO DAILY Patient Comments: TAKE 1 TABLET BY MOUTH ONCE DAILY clopidogrel 75 mg tablet 75 mg PO DAILY Patient Comments: TAKE 1 TABLET BY MOUTH ONCE DAILY metoprolol tartrate 25 mg tablet 25 mg PO BID Patient Comments: TAKE 1 TABLET BY MOUTH TWICE DAILY Jardiance 10 mg tablet 10 mg PO DAILY Patient Comments: TAKE 1 TABLET BY MOUTH ONCE DAILY Changed pantoprazole 40 mg tablet,delayed release (DR/EC) 40 mg PO BID Qty: 60 0RF Discontinued doxepin 10 mg capsule 10 mg PO BEDTIME budesonide-formoterol [Symbicort] 80-4.5 mcg/actuation HFA aerosol inhaler 2 puff inhalation BID Did you review [place] DELIVERY MGR for ALL controlled substances?: No Discussed opioids are addictive and Narcan is available by prescription or from pharmacy.: No Condition: Stable Referrals: RAMU DALY [Primary Care Provider, UNKNOWN] - 12/03/24 1:30 pm
== END 2024-11-27 10:25 | disposition home or self-care (01) ==
LOC: MEDSURG B 07:14 → ED 07:14 → MEDSURG B 09:53
PROVIDERS: ADMIT Hospitalist; ATTEND Nurse Practitioner Family